=== PATIENT | female | born 1960 | race African-American/Black ===

== ENCOUNTER 2021-11-29 10:07 | Inpatient (IN) | payer OTHER ==
[2021-11-29 11:01] LABS: ALT (SGPT) 8 U/L (8-55); AST (SGOT) 15 U/L (5-34); Albumin 3.7 g/dL (3.5-5.0); Alkaline Phosphatase 117 U/L (40-110); Anion Gap 12 mmol/L (10-20); BUN (Urea Nitrogen) 19 mg/dL (9.8-20.1); Bilirubin, Total 0.4 mg/dL (0.2-1.2); Calc. Creatinine Clearance 0 mL/min (70-130); Calcium 9.2 mg/dL (7.8-10.44); Carbon Dioxide 31 mmol/L (22-29); Chloride 102 mmol/L (98-107); Globulin 3.9 g/dL (2.4-3.5); Glucose 122 mg/dL (70-105); Lipase 36 U/L (8-78); Potassium 3.8 mmol/L (3.5-5.1); Protein, Total 7.6 g/dL (6.0-8.3); Sodium 141 mmol/L (136-145)
[2021-11-29 11:07] LABS: #Eosinphils 0.6 10x3/uL (0.0-0.5); #Monocytes 0.3 10x3/uL (0.0-1.1); #Neutrophils 2.5 10x3/uL (1.5-8.4); %Basophils 0.6 % (0.0-2.0); %Eosinophils 13.4 % (0.0-6.0); %Lymphocytes 25.5 % (18.0-47.0); %Monocytes 5.8 % (0.0-10.0); %Neutrophils 54.5 % (40.0-75.0); Hemoglobin 11.9 g/dL (12.0-15.5); Mean Corpuscular HGB CONC 31.5 g/dL (32.0-36.0); Mean Corpuscular Hemoglobin 27.5 pg (27.0-33.0); Mean Corpuscular Volume 87.5 fl (81.6-98.3); Mean Platelet Volume 9.3 fl (7.4-10.4); Platelet Count 244 10x3/uL (150-450); RBC Distribution Width 15.5 % (11.5-14.5); Red Blood Cell (RBC) Count 4.32 10x6/uL (3.90-5.03); White Blood Cell (WBC) Count 4.6 10x3/uL (3.5-10.5)
[2021-11-29] MEDS ORDERED: Ondansetron PF 4 MG/2 ML Vial ONE (11:59)
[2021-11-29] MEDS ORDERED: Morphine 2 MG/ML VIAL ONE (11:59)
[2021-11-29 15:26] VITALS: BMI 51.9
[2021-11-29] MEDS ORDERED: Ondansetron ODT 4 MG TAB PO PRN (16:41)
[2021-11-29] MEDS ORDERED: Acetaminophen 325 MG TAB PO PRN (16:41)
[2021-11-29] MEDS ORDERED: Nitroglycerin 0.4 MG TAB (25 Tab Bottle) SL PRN (16:43)
[2021-11-29] MEDS ORDERED: Electrolyte Replacement Protocol 1 EACH FS PRN (17:00)
[2021-11-29 19:12] LABS: Legionella Urinary Ag Negative (Negative); Strep pneumo Urine Ag NEGATIVE (NEGATIVE)
[2021-11-29] MEDS: Gabapentin 300 MG CAP PO SCH (20:39)
[2021-11-29] MEDS: Apixaban 5 MG TAB PO SCH (20:42)
[2021-11-30 04:34] LABS: #Eosinphils 0.5 10x3/uL (0.0-0.5); #Monocytes 0.3 10x3/uL (0.0-1.1); #Neutrophils 2.2 10x3/uL (1.5-8.4); %Basophils 0.7 % (0.0-2.0); %Eosinophils 12.2 % (0.0-6.0); %Lymphocytes 28.4 % (18.0-47.0); %Monocytes 7.3 % (0.0-10.0); %Neutrophils 51.2 % (40.0-75.0); Hemoglobin 10.9 g/dL (12.0-15.5); Mean Corpuscular Hemoglobin 27.7 pg (27.0-33.0); Mean Corpuscular Volume 86.5 fl (81.6-98.3); Mean Platelet Volume 9.1 fl (7.4-10.4); Platelet Count 208 10x3/uL (150-450); RBC Distribution Width 15.5 % (11.5-14.5); Red Blood Cell (RBC) Count 3.94 10x6/uL (3.90-5.03); White Blood Cell (WBC) Count 4.3 10x3/uL (3.5-10.5)
[2021-11-30 05:01] LABS: Bilirubin Neg (Negative); Blood, Urine 25 (Negative); Clarity Slightly Cloudy (Clear); Glucose, Urine (Dipstick) Normal (Negative); Ketone, Urine Negative (Negative); Leukocyte Negative (Negative); Nitrite Negative (Negative); Protein, Urine (Dipstick) Negative (Neg-Trace)
[2021-11-30 05:02] LABS: Phosphorus 2.9 mg/dL (2.3-4.7)
[2021-11-30 05:06] LABS: Anion Gap 12 mmol/L (10-20); BUN (Urea Nitrogen) 17 mg/dL (9.8-20.1); Calc. Creatinine Clearance 179 mL/min (70-130); Calcium 8.8 mg/dL (7.8-10.44); Carbon Dioxide 29 mmol/L (22-29); Cardiac Risk 4.9 (Less than 4.5); Chloride 102 mmol/L (98-107); Cholesterol 175 mg/dl (< 200 Desired); Glucose 108 mg/dL (70-105); HDL Cholesterol 36 mg/dL (>60 Neg Risk); LDL Cholesterol, Calculated 118 mg/dL; Magnesium 1.9 mg/dL (1.6-2.6); Sodium 139 mmol/L (136-145); Triglycerides 103 mg/dL (Less than 150)
[2021-11-30 05:09] LABS: Urine Culture Reflex No No
[2021-11-30 05:26] LABS: Bacteria/HPF 1+ HPF (None Seen); RBC/HPF 0-3 HPF (0-3)
[2021-11-30] MEDS ORDERED: Magnesium 2 GM/50 ML(in water) 2 GM in Premix Bag 1 BAG IVPB SCH ×2 (06:15→11:00)
[2021-11-30] MEDS: Apixaban 5 MG TAB PO SCH (09:24)
[2021-11-30] MEDS: Furosemide 40 MG/4 ML VIAL SLOW IVP SCH (10:39)
[2021-11-30] MEDS: Aspirin 81 mg Enteric Coated Tablet PO SCH (10:39)
[2021-11-30] MEDS: Gabapentin 300 MG CAP PO SCH ×3 (10:39→20:53)
[2021-11-30] MEDS ORDERED: Enoxaparin Sodium 30 MG/0.3 ML SYRINGE SC SCH (12:00)
[2021-11-30] MEDS ORDERED: Enoxaparin Sodium 120 MG/0.8 ML SYRINGE SC SCH (12:00)
[2021-11-30 12:32] LABS: Hemoglobin A1c 5.2 % (4.0-6.0)
[2021-11-30] MEDS ORDERED: Polyethylene Glycol 3350 17 GM Packet PO SCH (14:30)
[2021-11-30 16:44] LABS: Bilirubin Neg (Negative); Blood, Urine 10 (Negative); Clarity Clear (Clear); Glucose, Urine (Dipstick) Normal (Negative); Ketone, Urine Negative (Negative); Leukocyte 25 (Negative); Nitrite Negative (Negative); Protein, Urine (Dipstick) Negative (Neg-Trace); Urobilinogen Normal mg/dL (Less than 2)
[2021-11-30 17:00] LABS: Urine Culture Reflex No No
[2021-11-30 17:21] LABS: Bacteria/HPF Rare-Few HPF (None Seen); RBC/HPF 0-3 HPF (0-3); Squamous Epithelial 0-3 HPF (0-3); WBC/HPF 0-3 HPF (0-3)
[2021-11-30] MEDS: Atorvastatin Calcium 10 MG TAB PO SCH (20:53)
[2021-11-30] MEDS: Senokot S 8.6-50 MG TAB PO SCH (20:54)
[2021-12-01] MEDS: Gabapentin 300 MG CAP PO SCH ×3 (05:03→20:13)
[2021-12-01] MEDS: Aspirin 81 mg Enteric Coated Tablet PO SCH (05:03)
[2021-12-01 05:18] LABS: ALT (SGPT) 9 U/L (8-55); AST (SGOT) 13 U/L (5-34); Albumin 3.2 g/dL (3.5-5.0); Alkaline Phosphatase 112 U/L (40-110); Anion Gap 13 mmol/L (10-20); BUN (Urea Nitrogen) 22 mg/dL (9.8-20.1); Bilirubin, Total 0.4 mg/dL (0.2-1.2); Calc. Creatinine Clearance 146 mL/min (70-130); Calcium 8.8 mg/dL (7.8-10.44); Carbon Dioxide 32 mmol/L (22-29); Chloride 99 mmol/L (98-107); Globulin 3.8 g/dL (2.4-3.5); Glucose 116 mg/dL (70-105); Potassium 3.8 mmol/L (3.5-5.1); Sodium 140 mmol/L (136-145)
[2021-12-01 05:24] LABS: #Eosinphils 0.4 10x3/uL (0.0-0.5); #Monocytes 0.3 10x3/uL (0.0-1.1); #Neutrophils 2.6 10x3/uL (1.5-8.4); %Basophils 0.4 % (0.0-2.0); %Lymphocytes 24.4 % (18.0-47.0); %Monocytes 7.2 % (0.0-10.0); %Neutrophils 58.8 % (40.0-75.0); Hemoglobin 11.2 g/dL (12.0-15.5); Mean Corpuscular HGB CONC 31.6 g/dL (32.0-36.0); Mean Corpuscular Hemoglobin 27.9 pg (27.0-33.0); Mean Corpuscular Volume 88.1 fl (81.6-98.3); Mean Platelet Volume 9.1 fl (7.4-10.4); Platelet Count 220 10x3/uL (150-450); RBC Distribution Width 15.3 % (11.5-14.5); Red Blood Cell (RBC) Count 4.02 10x6/uL (3.90-5.03); White Blood Cell (WBC) Count 4.5 10x3/uL (3.5-10.5)
[2021-12-01] MEDS ORDERED: Magnesium 2 GM/50 ML(in water) 2 GM in Premix Bag 1 BAG IVPB SCH (06:00)
[2021-12-01] MEDS ORDERED: Lidocaine 1% 20 ML MDV ONE (07:09)
[2021-12-01] MEDS ORDERED: Fentanyl 100 MCG/2 ML VIAL ONE (07:09)
[2021-12-01] MEDS ORDERED: Midazolam HCl 2 mg/2 ml Vial ONE (07:10)
[2021-12-01] MEDS: Senokot S 8.6-50 MG TAB PO SCH ×2 (07:43→20:15)
[2021-12-01] MEDS: Polyethylene Glycol 3350 17 GM Packet PO SCH (07:43)
[2021-12-01] MEDS ORDERED: Iopamidol 300 61% 100 ML VIAL FS ONE (09:12)
[2021-12-01] MEDS ORDERED: Verapamil 5 MG/2 ML VIAL ONE (09:20)
[2021-12-01] MEDS ORDERED: Lidocaine 1% PF 5 ML VIAL ONE (09:20)
[2021-12-01] MEDS ORDERED: Nitroglycerin 50 MG/250 ML BOT 250 ML ONE (09:20)
[2021-12-01] MEDS ORDERED: Acetaminophen/Codeine 30-300mg Tablet PO PRN ×2 (10:30)
[2021-12-01] MEDS ORDERED: Nitroglycerin 0.4 MG TAB (25 Tab Bottle) SL PRN (10:30)
[2021-12-01] MEDS ORDERED: Sodium Chloride 0.9% 200 ML IV PRN (10:30)
[2021-12-01] MEDS: Furosemide 40 MG/4 ML VIAL SLOW IVP SCH (11:19)
[2021-12-01] MEDS: Atorvastatin Calcium 10 MG TAB PO SCH (20:13)
[2021-12-01] MEDS: Apixaban 5 MG TAB PO SCH (20:15)
[2021-12-02 04:22] LABS: #Eosinphils 0.5 10x3/uL (0.0-0.5); #Monocytes 0.5 10x3/uL (0.0-1.1); #Neutrophils 2.7 10x3/uL (1.5-8.4); %Basophils 0.6 % (0.0-2.0); %Eosinophils 10.7 % (0.0-6.0); %Lymphocytes 25.4 % (18.0-47.0); %Monocytes 9.3 % (0.0-10.0); %Neutrophils 53.8 % (40.0-75.0); Hemoglobin 11.8 g/dL (12.0-15.5); Mean Corpuscular HGB CONC 32.3 g/dL (32.0-36.0); Mean Corpuscular Hemoglobin 27.9 pg (27.0-33.0); Mean Corpuscular Volume 86.3 fl (81.6-98.3); Mean Platelet Volume 8.7 fl (7.4-10.4); Platelet Count 211 10x3/uL (150-450); RBC Distribution Width 15.3 % (11.5-14.5); Red Blood Cell (RBC) Count 4.23 10x6/uL (3.90-5.03)
[2021-12-02 04:23] LABS: ALT (SGPT) 9 U/L (8-55); AST (SGOT) 11 U/L (5-34); Albumin 3.3 g/dL (3.5-5.0); Alkaline Phosphatase 114 U/L (40-110); Anion Gap 13 mmol/L (10-20); BUN (Urea Nitrogen) 21 mg/dL (9.8-20.1); Bilirubin, Total 0.5 mg/dL (0.2-1.2); Calc. Creatinine Clearance 181 mL/min (70-130); Calcium 8.9 mg/dL (7.8-10.44); Carbon Dioxide 32 mmol/L (22-29); Chloride 98 mmol/L (98-107); Globulin 4.1 g/dL (2.4-3.5); Glucose 102 mg/dL (70-105); Magnesium 2.1 mg/dL (1.6-2.6); Potassium 3.8 mmol/L (3.5-5.1); Protein, Total 7.4 g/dL (6.0-8.3); Sodium 139 mmol/L (136-145)
[2021-12-02 09:03] VITALS: TEMP 96.9
[2021-12-02] MEDS: Apixaban 5 MG TAB PO SCH (09:06)
[2021-12-02] MEDS: Polyethylene Glycol 3350 17 GM Packet PO SCH (09:07)
[2021-12-02] MEDS: Senokot S 8.6-50 MG TAB PO SCH (09:07)
[2021-12-02] MEDS: Gabapentin 300 MG CAP PO SCH (09:07)
[2021-12-02] MEDS: Aspirin 81 mg Enteric Coated Tablet PO SCH (09:07)
[2021-12-02] MEDS ORDERED: Furosemide 20 MG TAB PO SCH (12:00)
[2021-12-02 12:22] VITALS: BP 128/69
== END 2021-12-02 12:45 | disposition home or self-care (01) | DRG 287 ==
LOC: CSHERS 10:07 → UNDOADMOB 13:49 → CSHTELE 13:49 → OBSVTOIN 12-01 12:28
PROVIDERS: ADMIT Internal Medicine; ATTEND Hospitalist
PROC: 4A023N7 Measurement of Cardiac Sampling and Pressure, Left Heart, Percutaneous Approach (ICD-10-PCS; principal; 2021-12-01)
PROC: B2111ZZ Fluoroscopy of Multiple Coronary Arteries using Low Osmolar Contrast (ICD-10-PCS; 2021-12-01)
PROC: B2151ZZ Fluoroscopy of Left Heart using Low Osmolar Contrast (ICD-10-PCS; 2021-12-01)
DX: I25.10 Atherosclerotic heart disease of native coronary artery without angina pectoris (principal); Z68.43 Body mass index [BMI] 50.0-59.9, adult; I50.32 Chronic diastolic (congestive) heart failure; T82.855A Stenosis of coronary artery stent, initial encounter; R07.9 Chest pain, unspecified; I11.0 Hypertensive heart disease with heart failure; G47.33 Obstructive sleep apnea (adult) (pediatric); E78.5 Hyperlipidemia, unspecified; M19.90 Unspecified osteoarthritis, unspecified site; R94.31 Abnormal electrocardiogram [ECG] [EKG]; E66.01 Morbid (severe) obesity due to excess calories; K59.00 Constipation, unspecified; Y83.8 Other surgical procedures as the cause of abnormal reaction of the patient, or of later complication, without mention of misadventure at the time of the procedure; Z20.822 Contact with and (suspected) exposure to COVID-19; I25.2 Old myocardial infarction; Z99.3 Dependence on wheelchair; Z79.899 Other long term (current) drug therapy; Z79.01 Long term (current) use of anticoagulants; Z87.01 Personal history of pneumonia (recurrent); Z98.890 Other specified postprocedural states; Z82.49 Family history of ischemic heart disease and other diseases of the circulatory system; Z80.42 Family history of malignant neoplasm of prostate; Z82.3 Family history of stroke; Z86.711 Personal history of pulmonary embolism; Z95.5 Presence of coronary angioplasty implant and graft
CPT/HCPCS: 36415; 71045; 80048; 80053; 80061; 81001; 83036; 83690; 83735; 83880; 84100; 84443; 84484; 85025; 87086; 87449; 87899; 93005; 93306; 93458; 93970; 94760; 96372; 96374; 96375; 96376; 99152; 99153; C1769; G0378; J1650; J1940; J2250; J2270; J2405; J3010; J3475; Q9967; U0003; U0005

== ENCOUNTER 2022-02-28 12:22 | Emergency (ER) | payer OTHER ==
[2022-02-28 12:53] LABS: #Eosinphils 0.3 10x3/uL (0.0-0.5); #Monocytes 0.3 10x3/uL (0.0-1.1); #Neutrophils 2.8 10x3/uL (1.5-8.4); %Basophils 0.4 % (0.0-2.0); %Eosinophils 7.5 % (0.0-6.0); %Lymphocytes 24.1 % (18.0-47.0); %Monocytes 5.7 % (0.0-10.0); %Neutrophils 62.1 % (40.0-75.0); Hemoglobin 11.7 g/dL (12.0-15.5); Mean Corpuscular HGB CONC 31.4 g/dL (32.0-36.0); Mean Corpuscular Hemoglobin 27.5 pg (27.0-33.0); Mean Corpuscular Volume 87.6 fl (81.6-98.3); Mean Platelet Volume 8.9 fl (7.4-10.4); Platelet Count 258 10x3/uL (150-450); RBC Distribution Width 15.4 % (11.5-14.5); Red Blood Cell (RBC) Count 4.26 10x6/uL (3.90-5.03); White Blood Cell (WBC) Count 4.5 10x3/uL (3.5-10.5)
[2022-02-28 13:08] LABS: ALT (SGPT) 9 U/L (8-55); AST (SGOT) 12 U/L (5-34); Albumin 3.7 g/dL (3.5-5.0); Alkaline Phosphatase 108 U/L (40-110); Anion Gap 11 mmol/L (10-20); BUN (Urea Nitrogen) 16 mg/dL (9.8-20.1); Bilirubin, Total 0.4 mg/dL (0.2-1.2); Calc. Creatinine Clearance 0 mL/min (70-130); Calcium 9.2 mg/dL (7.8-10.44); Carbon Dioxide 31 mmol/L (22-29); Chloride 101 mmol/L (98-107); Estimated GFR 79; Globulin 4.4 g/dL (2.4-3.5); Glucose 102 mg/dL (70-105); Potassium 3.3 mmol/L (3.5-5.1); Protein, Total 8.1 g/dL (6.0-8.3); Sodium 140 mmol/L (136-145)
== END 2022-02-28 15:44 | disposition home or self-care (01) ==
LOC: CSHERS 12:22
DX: R07.9 Chest pain, unspecified (principal); I10 Essential (primary) hypertension; I25.2 Old myocardial infarction; E78.5 Hyperlipidemia, unspecified; G47.30 Sleep apnea, unspecified; E66.9 Obesity, unspecified; Z68.45 Body mass index [BMI] 70 or greater, adult; Z86.711 Personal history of pulmonary embolism; Z79.01 Long term (current) use of anticoagulants; Z79.899 Other long term (current) drug therapy
CPT/HCPCS: 71045; 80053; 83880; 84484; 85025; 93005

== ENCOUNTER 2023-05-06 19:12 | Emergency (ER) | payer OTHER ==
[2023-05-06 20:04] LABS: #Eosinphils 0.2 10x3/uL (0.0-0.5); #Monocytes 0.3 10x3/uL (0.0-1.1); #Neutrophils 4.4 10x3/uL (1.5-8.4); %Basophils 0.2 % (0.0-2.0); %Eosinophils 3.3 % (0.0-6.0); %Lymphocytes 20.1 % (18.0-47.0); %Monocytes 4.1 % (0.0-10.0); %Neutrophils 71.8 % (40.0-75.0); Hematocrit 35.9 % (34.9-44.5); Hemoglobin 11.1 g/dL (12.0-15.5); Mean Corpuscular HGB CONC 30.9 g/dL (32.0-36.0); Mean Corpuscular Hemoglobin 26.7 pg (27.0-33.0); Mean Corpuscular Volume 86.5 fl (81.6-98.3); Mean Platelet Volume 9.2 fl (7.4-10.4); Platelet Count 293 10x3/uL (150-450); RBC Distribution Width 17.9 % (11.5-14.5); Red Blood Cell (RBC) Count 4.15 10x6/uL (3.90-5.03); White Blood Cell (WBC) Count 6.1 10x3/uL (3.5-10.5)
[2023-05-06 20:25] LABS: ALT (SGPT) Less than 7 U/L (8-55); AST (SGOT) 9 U/L (5-34); Albumin 3.2 g/dL (3.5-5.0); Alkaline Phosphatase 82 U/L (40-110); Anion Gap 13 mmol/L (10-20); BUN (Urea Nitrogen) 10 mg/dL (9.8-20.1); Bilirubin, Total 0.6 mg/dL (0.2-1.2); Calc. Creatinine Clearance 0 mL/min (70-130); Calcium 7.7 mg/dL (7.8-10.44); Carbon Dioxide 28 mmol/L (22-29); Chloride 103 mmol/L (98-107); Estimated GFR 69; Globulin 3.2 g/dL (2.4-3.5); Glucose 149 mg/dL (70-105); Magnesium 1.9 mg/dL (1.6-2.6); Potassium 2.8 mmol/L (3.5-5.1); Protein, Total 6.4 g/dL (6.0-8.3); Sodium 141 mmol/L (136-145)
[2023-05-06 20:32] LABS: Troponin I Less than 0.010 ng/mL (< 0.028)
[2023-05-06 22:26] LABS: Troponin I Less than 0.010 ng/mL (< 0.028)
== END 2023-05-06 23:18 | disposition home or self-care (01) ==
LOC: CSHERS 19:12
DX: R07.9 Chest pain, unspecified (principal); E87.6 Hypokalemia; E66.9 Obesity, unspecified; E78.5 Hyperlipidemia, unspecified; I10 Essential (primary) hypertension; Z79.01 Long term (current) use of anticoagulants; Z79.82 Long term (current) use of aspirin
CPT/HCPCS: 71045; 80053; 83735; 83880; 84484; 85025; 93005; 94760

== ENCOUNTER 2023-06-29 20:03 | Observation (INO) | payer OTHER ==
[2023-06-29 20:52] LABS: #Eosinphils 0.1 10x3/uL (0.0-0.5); #Monocytes 0.2 10x3/uL (0.0-1.1); #Neutrophils 4.1 10x3/uL (1.5-8.4); %Basophils 0.4 % (0.0-2.0); %Eosinophils 2.2 % (0.0-6.0); %Lymphocytes 18.3 % (18.0-47.0); %Monocytes 3.7 % (0.0-10.0); Hematocrit 36.6 % (34.9-44.5); Hemoglobin 11.4 g/dL (12.0-15.5); Mean Corpuscular HGB CONC 31.1 g/dL (32.0-36.0); Mean Corpuscular Hemoglobin 27.1 pg (27.0-33.0); Mean Corpuscular Volume 87.1 fl (81.6-98.3); Platelet Count 260 10x3/uL (150-450); RBC Distribution Width 18.3 % (11.5-14.5); White Blood Cell (WBC) Count 5.5 10x3/uL (3.5-10.5)
[2023-06-29 21:05] LABS: ALT (SGPT) Less than 7 U/L (8-55); AST (SGOT) 9 U/L (5-34); Albumin 3.7 g/dL (3.5-5.0); Alkaline Phosphatase 92 U/L (40-110); Anion Gap 12 mmol/L (10-20); BUN (Urea Nitrogen) 15 mg/dL (9.8-20.1); Bilirubin, Total 0.5 mg/dL (0.2-1.2); Calc. Creatinine Clearance 0 mL/min (70-130); Carbon Dioxide 29 mmol/L (22-29); Chloride 101 mmol/L (98-107); Estimated GFR 50; Globulin 4.3 g/dL (2.4-3.5); Glucose 169 mg/dL (70-105); Magnesium 2.1 mg/dL (1.6-2.6); Potassium 3.3 mmol/L (3.5-5.1); Sodium 139 mmol/L (136-145)
[2023-06-29 21:11] LABS: Troponin I Less than 0.010 ng/mL (< 0.028)
[2023-06-29] MEDS ORDERED: Aspirin Chewable 81 MG TAB ONE (21:18)
[2023-06-29] MEDS ORDERED: HumaLOG 300 UNITS/3 ML VIAL SC PRN ×2 (23:13)
[2023-06-29] MEDS ORDERED: Senokot S 8.6-50 MG TAB PO PRN (23:13)
[2023-06-29] MEDS ORDERED: Ondansetron PF 4 MG/2 ML Vial IVP PRN (23:13)
[2023-06-29] MEDS ORDERED: Loperamide HCl 2 MG CAP PO PRN (23:13)
[2023-06-29] MEDS ORDERED: Glucagon 1 MG/ML KIT IM PRN (23:13)
[2023-06-29] MEDS ORDERED: Bisacodyl 5 MG TAB PO PRN (23:13)
[2023-06-29] MEDS ORDERED: Dextrose 50% Abboject 50 ML SYRINGE SLOW IVP PRN (23:13)
[2023-06-29] MEDS ORDERED: Ondansetron ODT 4 MG TAB PO PRN (23:13)
[2023-06-29] MEDS ORDERED: Acetaminophen 325 MG TAB PO PRN (23:13)
[2023-06-29] MEDS ORDERED: Dextrose 5% in Water 1,000 ML IV PRN (23:13)
[2023-06-29] MEDS ORDERED: Acetaminophen 650 MG Suppository PR PRN (23:13)
[2023-06-29] MEDS ORDERED: Lactated Ringer's 1,000 ML IV SCH (23:15)
[2023-06-29] MEDS ORDERED: Potassium Chloride 20 MEQ TAB PO SCH (23:30)
[2023-06-29] MEDS ORDERED: Potassium Chloride 20 MEQ TAB ONE (23:36)
[2023-06-29 23:42] LABS: Troponin I 0.015 ng/mL (< 0.028)
[2023-06-30 02:44] LABS: Troponin I 0.028 ng/mL (< 0.028)
[2023-06-30 02:45] LABS: Anion Gap 13 mmol/L (10-20); BUN (Urea Nitrogen) 15 mg/dL (9.8-20.1); Calc. Creatinine Clearance 0 mL/min (70-130); Calcium 8.6 mg/dL (7.8-10.44); Carbon Dioxide 27 mmol/L (22-29); Cardiac Risk 3.9 (Less than 4.5); Chloride 105 mmol/L (98-107); Cholesterol 129 mg/dl (< 200 Desired); Estimated GFR 62; Glucose 121 mg/dL (70-105); HDL Cholesterol 33 mg/dL (>60 Neg Risk); LDL Cholesterol, Calculated 76 mg/dL; Potassium 3.8 mmol/L (3.5-5.1); Sodium 141 mmol/L (136-145); Triglycerides 98 mg/dL (Less than 150)
[2023-06-30] MEDS ORDERED: Metoprolol Tartrate 25 MG TAB PO SCH (09:00)
[2023-06-30] MEDS ORDERED: Apixaban 5 MG TAB PO SCH (09:00)
[2023-06-30] MEDS ORDERED: Aspirin Chewable 81 MG TAB PO SCH (09:00)
[2023-06-30] MEDS ORDERED: Aspirin 81 mg Enteric Coated Tablet ONE (09:45)
[2023-06-30] MEDS ORDERED: Metoprolol Tartrate 25 MG TAB ONE (09:46)
[2023-06-30] MEDS ORDERED: Apixaban 5 MG TAB ONE (09:46)
[2023-06-30] MEDS: Gabapentin 300 MG CAP PO SCH ×2 (12:15→14:56)
[2023-06-30] MEDS ORDERED: Gabapentin 300 MG CAP ONE ×2 (12:15→14:51)
[2023-06-30 12:35] LABS: Hemoglobin A1c 6.2 % (4.0-6.0)
[2023-06-30] MEDS ORDERED: Nitroglycerin 0.4 MG TAB (25 Tab Bottle) SL PRN (13:15)
[2023-06-30 15:35] VITALS: BP 119/53; TEMP 97.8
[2023-06-30] MEDS ORDERED: Ranolazine 500 MG ER.TAB PO SCH (21:00)
[2023-06-30] MEDS ORDERED: Atorvastatin Calcium 40 MG TAB PO SCH (21:00)
[2023-07-01] MEDS ORDERED: Potassium Chloride 20 MEQ TAB PO SCH (08:00)
== END 2023-06-30 18:00 | disposition home or self-care (01) ==
LOC: CSHERS 20:03 → CSHERHOLD 22:47
PROVIDERS: ADMIT Family Medicine; ATTEND Internal Medicine
PROC: B24BZZZ Ultrasonography of Heart with Aorta (ICD-10-PCS; principal; 2023-06-30)
DX: I25.10 Atherosclerotic heart disease of native coronary artery without angina pectoris (principal); I11.0 Hypertensive heart disease with heart failure; I50.30 Unspecified diastolic (congestive) heart failure; I25.2 Old myocardial infarction; N17.9 Acute kidney failure, unspecified; G25.81 Restless legs syndrome; E87.6 Hypokalemia; D64.9 Anemia, unspecified; G47.33 Obstructive sleep apnea (adult) (pediatric); E66.01 Morbid (severe) obesity due to excess calories; Z79.01 Long term (current) use of anticoagulants; Z86.711 Personal history of pulmonary embolism; Z88.8 Allergy status to other drugs, medicaments and biological substances; Z79.899 Other long term (current) drug therapy; Z98.890 Other specified postprocedural states
CPT/HCPCS: 36415; 71045; 80048; 80053; 80061; 83036; 83735; 83880; 84443; 84484; 85025; 93005; 93306; 96360; 96361; G0378; J1815; J7120

== ENCOUNTER 2024-06-04 10:33 | Emergency (ER) | payer OTHER ==
[2024-06-04] MEDS ORDERED: HYDROcodone/Acetaminophen 5/325 mg Tablet ONE (12:03)
== END 2024-06-04 12:43 | disposition home or self-care (01) ==
LOC: CSHERS 10:33
DX: B02.9 Zoster without complications (principal); I10 Essential (primary) hypertension
CPT/HCPCS: 99283